=== PATIENT | female | born 1970 ===

== ENCOUNTER 2019-07-04 08:29 | Inpatient (IN) | payer OTHER ==
[~2019-07-04] VITALS: Ht 170.2 cm; Wt 74.8 kg
[2019-07-04] MEDS ORDERED: SYNTHROID125 MCG PO (09:35)
== END 2019-07-10 09:29 | disposition home or self-care (01) | DRG 743 ==
LOC: ADM 09:45 → EDSTATUS 09:45 → O/R 07-08 05:00 → OB/GYN 07-08 05:00 → SURH 07-08 09:45 → OB/GYN 07-08 11:04 → SURH 07-08 12:30 → OB/GYN 07-10 09:29
PROVIDERS: ADMIT Obstetrics & Gynecology
PROC: 0UT90ZZ Resection of Uterus, Open Approach (ICD-10-PCS; principal; 2019-07-08 12:30)
DX: D25.1 Intramural leiomyoma of uterus (principal); D25.2 Subserosal leiomyoma of uterus; N80.0 Endometriosis of uterus

== ENCOUNTER → 2020-05-21 | Outpatient (CLI) | payer OTHER ==
[~2020-05-21] VITALS: Ht 170.2 cm; Wt 72.1 kg
[~2020-05-21] MED LIST: FLONASE16 GM NASAL; SYNTHROID125 MCG PO; ZYRTEC10 M3 PO
== END | disposition home or self-care (01) ==
LOC: OFIC 805 09:33
PROVIDERS: ATTEND Otolaryngology
DX: R09.81 Nasal congestion (principal); J30.89 Other allergic rhinitis; H69.93 Unspecified Eustachian tube disorder, bilateral; H93.13 Tinnitus, bilateral